=== PATIENT | female | born 1980 | race African-American/Black ===

== ENCOUNTER 2018-03-12 10:39 | Outpatient (CLI) | END 2018-03-12 13:20 | disposition home or self-care (01) ==

== ENCOUNTER 2018-05-11 22:05 | Outpatient (CLI) | END 2018-05-12 05:41 | disposition home or self-care (01) ==

== ENCOUNTER 2018-05-12 17:00 | Inpatient (IN) | END 2018-05-15 14:20 | disposition home or self-care (01) | DRG 766 ==